=== PATIENT | female | born 1955 | race Caucasian/White ===

== ENCOUNTER → 2017-01-20 | Day surgery (SDC) | payer OTHER ==
[~2017-01-20] MED LIST: ACET325 PO; B/P MED PO; B12-1CHW CHEW; BUPIVACAINE HCL PF 0.25% 30 ML VIAL ONE; CEPH250 PO; GNP400TA4 PO; IBUP-232 PO; KETO2%T TOP; KETOROLAC TROMETHAMINE 30 MG/ML (IVP) VIAL IV PUSH ONE; LACTATED RINGER'S 1000 ML INJ 1,000 ML ONE; LEVO.1 PO; MIDAZOLAM HCL 2 MG/2 ML VIAL ONE; OLIV250C PO; ONDANSETRON HCL 4 MG/2 ML VIAL IV PUSH ONE; PROPOFOL 100 MG/10 ML INJ IV ONE; TAB-TAB PO; ceFAZolin 2 GM PREMIX 50 ML ONE
--- NOTE | 2017-01-22 10:57 | MP ---
cc: CHANTEL STALEY DP DATE OF SURGERY 01/20/2017 PREOPERATIVE DIAGNOSIS Painful hardware, painful exostosis, right hallux. POSTOPERATIVE DIAGNOSIS Painful hardware, painful exostosis, right hallux. PROCEDURES PERFORMED Removal of painful hardware, exostectomy of plantar hallux IPJ. SPECIMEN None. ESTIMATED BLOOD LOSS Less than 30 mL. COMPLICATIONS None. ANESTHESIA General with 15 cc of 0.25% Marcaine plain. PLAN OF ACTIVITY Discharge home once stable per same-day surgery criteria. TOURNIQUET TIME 60 minutes at a setting of 215 mmHg PROCEDURE IN DETAIL Under mild sedation, the patient is brought into the operating room, placed on the operating room table in the supine position. Following the induction of general anesthesia, local anesthesia was attained about the forefoot utilizing standard block fashion. The patient's right foot was then scrubbed, prepped and draped in the usual aseptic fashion. The foot was elevated, exsanguinated and the previously placed mid-ankle tourniquet was inflated to 215 mmHg. Incision was made at the medial distal hallux. Sharp and blunt dissection was carried down to a headless screw that was used previous for an IPJ fusion. This was removed without any complication. Next the dorsal incision was made. Sharp and blunt dissection was carried down beneath the periosteal layer and a dorsal first MPJ fusion plate was removed. However, there was noted to be fracturing of the third screw from distal. At this time a truss line was then used to truss line over the dorsal aspect of the screw. The screw was then grasped with a straight hemostat and was exited from the bone without any complication. The wound was flushed with copious amounts of normal saline. The periosteal layer was placed using Monocryl. The skin was closed utilizing nylon. Next, incision was made over the plantar lateral hallux. Sharp and blunt dissection was carried down to proliferate bone. This was then removed to a flat, more accommodating weightbearing contour as opposed to its pointy, painful nature. The wound was flushed with copious amounts of normal saline. The skin was closed utilizing nylon. Upon relieving the tourniquet there was a prompt hyperemic response to all digits without any delayed capillary fill time. A bulky bandage was placed and the patient transferred over to PACU with all vital signs stable. The patient is to heel weight-bear. Followup within 3-5 days. DALTON Li/YAEL /1:39 PM /10:43 AM
== END | disposition home or self-care (01) ==
LOC: ESDC 09:56
PROVIDERS: ATTEND Podiatrist Foot & Ankle Surgery
DX: T84.84XA Pain due to internal orthopedic prosthetic devices, implants and grafts, initial encounter (principal); M25.774 Osteophyte, right foot
CPT/HCPCS: 01480; 20680; 28288; 73620; 76000; J0690; J1885; J2250; J2405; J3010; J7120

== ENCOUNTER → 2017-10-20 | Day surgery (SDC) | payer OTHER ==
[~2017-10-20] MED LIST changes: -BUPIVACAINE HCL PF 0.25% 30 ML VIAL ONE; +BUPIVACAINE HCL PF 0.75% 30 ML VIAL ONE; -KETOROLAC TROMETHAMINE 30 MG/ML (IVP) VIAL IV PUSH ONE; -LACTATED RINGER'S 1000 ML INJ 1,000 ML ONE; +LIDOCAINE 1.5%/EPINEPHrine 1:200,000 PF SOLN 30 ML AMP ONE; -MIDAZOLAM HCL 2 MG/2 ML VIAL ONE; +MIDAZOLAM HCL 5 MG/ML VIAL (1 ML) ONE; -ONDANSETRON HCL 4 MG/2 ML VIAL IV PUSH ONE; -PROPOFOL 100 MG/10 ML INJ IV ONE; +PROPOFOL 500 MG/50 ML BTL IV ONE
--- NOTE | 2017-10-20 20:23 | MP ---
cc: CHANTEL STALEY DPM DATE OF SURGERY 10/20/17 PREOPERATIVE DIAGNOSIS Chronic metatarsalgia, hammertoes two through five. POSTOPERATIVE DIAGNOSIS Chronic metatarsalgia, hammertoes two through five. PROCEDURE PERFORMED Second through five metatarsal head resection plantar first MPJ exostectomy and PIPJ fusion digits 2, 3, 4, and 5. IMPLANTABLES Times three 0.045 wires and x1 0.054 wire. ANESTHESIA The patient had an anesthesia block popliteal ESTIMATED BLOOD LOSS Less than 40 mL TOURNIQUET TIME 105 minutes at a setting of 215 mmHg about the patient's right ankle. JUSTIFICATION FOR PROCEDURE A pleasant 62-year-old female with chronic right foot pain. She has had isolated metatarsal head resections and a first MPJ fusion. The patient continues to have chronic pain. We devised a plan to move forward with metatarsal head resection, plantar resurfacing of the first metatarsal and possible resection of the proximal phalanx base with repair of hammertoes. No guarantees were given or implied regarding the outcome. The patient understands chronic stiffness, numbness, burning, tingling, edema, possible need for more surgery at a later date, infection is all possible. PROCEDURE IN DETAIL Under mild sedation, the patient is brought into the operating room, placed on the operating table in the supine position. Following the induction of general anesthesia, the patient's right lower extremity was then scrubbed, prepped and draped in the usual aseptic fashion. The foot was elevated, exsanguinated and previously placed mid ankle tourniquet was inflated at 215 mmHg. The procedure that was performed on digits 2, 3, 4, and 5 are exactly the same. An incision was made over the respective digit at the level of the PIPJ. Sharp and blunt dissection was carried down to the bow strung extensor digitorum longus tendon. A Z tendon lengthening approach took place allowing for access through scar tissue down to a prominent bony exostosis and hypertrophy of the respective metatarsal head area. The metatarsal head was then resected through a subperiosteal dissection being careful not to violate plantar, medial or lateral neurovascular bundles. Next, sharp and blunt dissection was carried down to the level of the head of the proximal phalanx and the base of the middle phalanx with the respective digit. The head of the proximal phalanx was transected as well as the base of the middle phalanx. The wound was flushed with copious amounts of normal saline. A wire was then placed through the middle phalanx. The distal phalanx retrograded back across the proximal phalanx stopping just short at the previous area of where the metatarsal head remained. This took place on digits 2, 3, 4 and 5. Extensor digitorum longus tendon was then loosely coapted utilizing Vicryl under loose physiologic tension. Subdermal closure took place utilizing Vicryl. Skin was closed utilizing nylon. Next, an isolated medial plantar first MPJ incision was made. Incision was made through joint capsule down to bone. A subperiosteal dissection took place and the plantar condyle of the first metatarsal and the base of the proximal phalanx was then transected to a more smooth contour. The wound was flushed with copious amounts of normal saline. The capsule was then repaired utilizing Vicryl. Skin was closed utilizing nylon. Fluoroscopy was used to visualize the work that was done. There were wires in place digits 2, 3, 4 and 5 with excellent alignment and a soft contour upon palpating the plantar forefoot at the area with there is previous excessive bony exostosis and pain. A bulky bandage was placed. The patient was then positioned within a controlled ankle motion boot. The patient was then transferred from OR to PACU with all vital signs stable. Before leaving operative suite and applying the bandages, the tourniquet was dropped. There was a prompt hyperemic response to all digits without any delayed capillary fill time. The patient is non-weightbearing. She will ice, elevate. I will see the patient within 3-5 days. DALTON Li /3:10 PM /8:11 PM
== END | disposition home or self-care (01) ==
LOC: ESDC 10:45
PROVIDERS: ATTEND Podiatrist Foot & Ankle Surgery
DX: M20.41 Other hammer toe(s) (acquired), right foot (principal); M79.671 Pain in right foot
CPT/HCPCS: 28234; 28285; 28288; 64445; 73620; 76000; J0690; J2250; J3010

== ENCOUNTER 2018-04-11 08:12 | Emergency (ER) | payer OTHER ==
[~2018-04-11] VITALS: Ht 170.2 cm; Wt 92.0 kg
[~2018-04-11 08:12] MED LIST changes: -BUPIVACAINE HCL PF 0.75% 30 ML VIAL ONE; -LIDOCAINE 1.5%/EPINEPHrine 1:200,000 PF SOLN 30 ML AMP ONE; -MIDAZOLAM HCL 5 MG/ML VIAL (1 ML) ONE; -PROPOFOL 500 MG/50 ML BTL IV ONE; -ceFAZolin 2 GM PREMIX 50 ML ONE
[2018-04-11 08:18] VITALS: BP 194/93; PULSE 74; RESP 16; TEMP 97.8; O2SAT 100
--- NOTE | 2018-04-11 08:35 | PD ---
HPI Chief Complaint: Fall Time Seen by Provider: 08:23 Travel History International Travel<30 days: No Contact w/Intl Traveler<30days: No Traveled to known affect area: No History of Present Illness HPI 63yo F with PMH of arthritis presents to the ED with c/o right knee pain s/p trip and fall today about an hour ago. Said her shoes were damp and tripped on her neighbor's hardwood floor falling forward and hitting her right knee and right forehead. Said her right forehead does not really hurt and has no LOC. Denies any visual changes, nausea, vomiting, chest pain, sob, abdominal pain, focal weakness or numbness. Pt able to ambulate after the fall but with pain. Took acetaminophen prior to fall for her arthritis and does not want anything for pain right now. Knee pain is constant, moderate in severity and worst with movement. Denies any anticoagulation. PFSH Past Medical History Diminished Hearing: No Immunizations Current: Yes Thyroid Disease: Yes (HYPOTHYROID) Menopausal: Yes Past Surgical History Appendectomy: Yes Cholecystectomy: Yes Hysterectomy: Yes Other Surgery: Yes (FINGER AMPUTATED) Social History Alcohol Use: No Tobacco Use: No Substance Use: No Allergies-Medications (Allergen,Severity, Reaction): Coded Allergies: Sulfa (Sulfonamide Antibiotics) (Unverified Allergy, Severe, THROAT CLOSES , 04/11/18) ciprofloxacin (Unverified Allergy, Severe, THROAT CLOSES, 04/11/18) clindamycin (Unverified Allergy, Severe, THROAT CLOSES, 04/11/18) codeine (Unverified Allergy, Severe, CONVULSIONS, 04/11/18) diatrizoate meglumine (Unverified Allergy, Severe, THROAT CLOSES, 04/11/18) erythromycin base (Unverified Allergy, Severe, THROAT CLOSES, 04/11/18) gadobenic acid (Unverified Allergy, Severe, THROAT CLOSES, 04/11/18) gadodiamide (Unverified Allergy, Severe, THROAT CLOSES, 04/11/18) gadoteridol (Unverified Allergy, Severe, THROAT CLOSES, 04/11/18) iodixanol (Unverified Allergy, Severe, THROAT CLOSES, 04/11/18) iohexol (Unverified Allergy, Severe, THROAT CLOSES, 04/11/18) penicillin G (Unverified Allergy, Severe, THROAT CLOSES, 04/11/18) prochlorperazine (Unverified Allergy, Severe, CONVULSIONS, 04/11/18) shellfish derived (Unverified Allergy, Severe, THROAT CLOSES, 04/11/18) doxycycline (Unverified Allergy, Mild, THROAT CLOSES, 04/11/18) hydromorphone (Unverified Allergy, Mild, 04/11/18) minocycline (Unverified Allergy, Mild, THROAT CLOSES, 04/11/18) tigecycline (Unverified Allergy, Mild, THROAT CLOSES, 04/11/18) Reported Meds & Prescriptions Reported Meds & Active Scripts Active Reported [Bp Medication] 1 Tab PO DAILY Multi-Vitamin Daily (Multiple Vitamin) 1 Tab Tab 1 Tab PO DAILY Tylenol (Acetaminophen) 325 Mg Tab 325 Mg PO Q4H PRN Levothyroxine (Levothyroxine Sodium) 100 Mcg Tab 100 Mcg PO DAILY Review of Systems Except as stated in HPI: all other systems reviewed are Neg Physical Exam Narrative GENERAL: 63yo F not in distress. SKIN: Focused skin assessment warm/dry. HEAD: +Mild erythema in right forehead. No bleeding. EYES: Pupils equal and round at 3mm bilaterally. EOMI. ENT: No hemotympanum bilaterally. No septal hematoma. NECK: No midline cervical spine ttp. CARDIOVASCULAR: Regular rate and rhythm. No murmur appreciated. RESPIRATORY: No accessory muscle use. Clear to auscultation. Breath sounds equal bilaterally. GASTROINTESTINAL: Abdomen soft, non-tender, nondistended. MUSCULOSKELETAL: RLE: +TTP diffusely in right knee. No erythema. Distal pulses intact. Sensation intact. Able to flex and extend fully but with pain. No ttp bilateral hips. NEUROLOGICAL: Awake and alert. No obvious cranial nerve deficits. Motor grossly within normal limits in all extremities. Sensation intact and equal. Normal speech. PSYCHIATRIC: Appropriate mood and affect; insight and judgment normal. Data Data Last Documented VS Vital Signs Date Time Temp Pulse Resp B/P (MAP) Pulse Ox O2 Delivery O2 Flow Rate FiO2 04/11/18 08:31 Room Air 04/11/18 08:18 97.8 74 16 194/93 (126) 100 Orders Orders Knee, Ltd (1 Or 2vws) (04/11/18 ) [facility] Medical Decision Making Medical Screen Exam Complete: Yes Emergency Medical Condition: Yes Differential Diagnosis Fracture vs. contusion Narrative Course 63yo F here with right knee pain s/p mechanical fall today. Pt did hit her right forehead but pain is minimal and has no focal neurologic deficits. No CT imaging needed for head as per CT lib[place] head rule. Xray right knee showed no acute injury. Pt still does not want anything for pain. Return precautions given. Diagnosis Primary Impression: Fall Qualified Codes: W19.XXXA - Unspecified fall, initial encounter Patient Instructions: General Instructions Departure Forms: Tests/Procedures Additional Instructions: Please follow up with your primary care physician in 2-3 days. Take acetaminophen for pain as needed. Return to the ED if symptoms worsen. Med/Other Pt SpecificInfo: No Change to Meds Disposition: 01 DISCHARGE HOME Condition: Stable Rubia Dillard DO Apr 11, 2018 08:35
[2018-04-11] MEDS ORDERED: BP MEDICATION PO (08:37)
[2018-04-11] MEDS ORDERED: MULT-65 PO (08:37)
[2018-04-11] MEDS ORDERED: LEVO100T5 PO (08:37)
[2018-04-11] MEDS ORDERED: TYLE325T PO (08:37)
--- NOTE | 2018-04-11 09:04 | RADRPT ---
EXAM DATE: 04/11/2018 9:01 AM EDT AGE/SEX: 63 years / Female INDICATIONS: Fell on right knee, has pain anterior aspect of knee CLINICAL DATA: This is the patient's initial encounter. Patient reports that signs and symptoms have been present for 1 day and indicates a pain score of 9/10. MEDICAL/SURGICAL HISTORY: None. . left knee, right foot COMPARISON: No prior [facility] exams available for comparison. FINDINGS: Bony structures are intact and in normal alignment. Mild lateral joint line narrowing and bony produc tive changes. Patellar enthesophyte at the insertion of the quadriceps tendon.. Osseous density is n ormal. Soft tissues are unremarkable. No radiopaque foreign bodies seen. CONCLUSION: No evidence of acute injury. Electronically signed by: Lexie Brown MD 04/11/2018 9:02 AM EDT
== END 2018-04-11 10:25 | disposition home or self-care (01) ==
LOC: PHED 08:12
DX: M25.561 Pain in right knee (principal); R51 Headache; E03.9 Hypothyroidism, unspecified; W01.0XXA Fall on same level from slipping, tripping and stumbling without subsequent striking against object, initial encounter; Z79.899 Other long term (current) drug therapy; Z88.2 Allergy status to sulfonamides; Z88.5 Allergy status to narcotic agent; Z88.0 Allergy status to penicillin; Z88.8 Allergy status to other drugs, medicaments and biological substances
CPT/HCPCS: 73560; 99283

== ENCOUNTER 2018-05-01 18:02 | Emergency (ER) | payer OTHER ==
[~2018-05-01] VITALS: Ht 170.2 cm; Wt 91.0 kg
[~2018-05-01 18:02] MED LIST changes: -ACET325 PO; -B/P MED PO; -B12-1CHW CHEW; +BP MEDICATION PO; -CEPH250 PO; -GNP400TA4 PO; -IBUP-232 PO; -KETO2%T TOP; -LEVO.1 PO; +LEVO100T5 PO; +MULT-65 PO; -OLIV250C PO; -TAB-TAB PO; +TYLE325T PO
[2018-05-01 18:04] VITALS: BP 165/79; PULSE 68; RESP 18; TEMP 98.1; O2SAT 100
[2018-05-01] MEDS ORDERED: ENAL5TAB PO (18:40)
--- NOTE | 2018-05-01 18:43 | PD ---
HPI Chief Complaint: Skin Problem Time Seen by Provider: 18:23 Travel History International Travel<30 days: No Contact w/Intl Traveler<30days: No Traveled to known affect area: No History of Present Illness HPI This patient complains of possible infection of the right great toe. She has had multiple surgeries on that right foot due to some sort of bone deformity. She follows with a absorption plant operator regularly. She noticed some blistering near the tip recently. Symptom severity is mild. No alleviating factors no injury to it no fever or drainage PFSH Past Medical History Arthritis: Yes Diminished Hearing: No Hypertension: Yes Immunizations Current: Yes Thyroid Disease: Yes (HYPOTHYROID) Tetanus Vaccination: < 5 Years Influenza Vaccination: No ?: Not Menopausal: Yes Past Surgical History Appendectomy: Yes Cholecystectomy: Yes Hysterectomy: Yes Joint Replacement: Yes (left knee) Tonsillectomy: Yes Other Surgery: Yes ( right hand 4th digit FINGER AMPUTATED) Social History Alcohol Use: No Tobacco Use: No Substance Use: No Allergies-Medications (Allergen,Severity, Reaction): Coded Allergies: Sulfa (Sulfonamide Antibiotics) (Unverified Allergy, Severe, THROAT CLOSES , 05/01/18) ciprofloxacin (Unverified Allergy, Severe, THROAT CLOSES, 05/01/18) clindamycin (Unverified Allergy, Severe, THROAT CLOSES, 05/01/18) codeine (Unverified Allergy, Severe, CONVULSIONS, 05/01/18) diatrizoate meglumine (Unverified Allergy, Severe, THROAT CLOSES, 05/01/18) erythromycin base (Unverified Allergy, Severe, THROAT CLOSES, 05/01/18) gadobenic acid (Unverified Allergy, Severe, THROAT CLOSES, 05/01/18) gadodiamide (Unverified Allergy, Severe, THROAT CLOSES, 05/01/18) gadoteridol (Unverified Allergy, Severe, THROAT CLOSES, 05/01/18) iodixanol (Unverified Allergy, Severe, THROAT CLOSES, 05/01/18) iohexol (Unverified Allergy, Severe, THROAT CLOSES, 05/01/18) penicillin G (Unverified Allergy, Severe, THROAT CLOSES, 05/01/18) prochlorperazine (Unverified Allergy, Severe, CONVULSIONS, 05/01/18) shellfish derived (Unverified Allergy, Severe, THROAT CLOSES, 05/01/18) doxycycline (Unverified Allergy, Mild, THROAT CLOSES, 05/01/18) hydromorphone (Unverified Allergy, Mild, 05/01/18) minocycline (Unverified Allergy, Mild, THROAT CLOSES, 05/01/18) tigecycline (Unverified Allergy, Mild, THROAT CLOSES, 05/01/18) Reported Meds & Prescriptions Reported Meds & Active Scripts Active Reported Enalapril (Enalapril Maleate) 5 Mg Tab 5 Mg PO BID Multi-Vitamin Daily (Multiple Vitamin) 1 Tab Tab 1 Tab PO DAILY Tylenol (Acetaminophen) 325 Mg Tab 325 Mg PO Q4H PRN Levothyroxine (Levothyroxine Sodium) 100 Mcg Tab 100 Mcg PO DAILY Review of Systems General / Constitutional: No: Fever Eyes: No: Diploplia Cardiovascular: No: Chest Pain or Discomfort Respiratory: No: Cough Physical Exam Narrative Psych: Normal mood and affect. Normal insight and judgment. SKIN: Focused skin assessment reveals no rash or ulcers. Skin is warm and dry. Palpation shows no induration or nodules. Right foot: There are some chronic deformity from surgical changes. Examination of the great toe reveals that there is a healing blistered area. There is a bit of rough skin and it is dry but there is no evidence of infection. There is no redness or warmth or drainage or fluctuance. Data Data Last Documented VS Vital Signs Date Time Temp Pulse Resp B/P (MAP) Pulse Ox O2 Delivery O2 Flow Rate FiO2 05/01/18 18:31 16 05/01/18 18:04 98.1 68 165/79 (107) 100 MDM Medical Decision Making Medical Screen Exam Complete: Yes Emergency Medical Condition: Yes Medical Record Reviewed: Yes Differential Diagnosis Blister, cellulitis, scab Narrative Course I have reviewed the patient's electronic medical record. I do not see any evidence of infectious process going on in the right great toe. She should keep an eye on it and return if there is development of those symptoms which we reviewed. Follow-up with podiatry as needed Diagnosis Primary Impression: Blister of great toe, right Qualified Codes: S90.421A - Blister (nonthermal), right great toe, initial encounter Additional Instructions: Follow-up with podiatry as needed Med/Other Pt SpecificInfo: Other Disposition: 01 DISCHARGE HOME Condition: Stable Hao Zamorano MD May 01, 2018 18:43
== END 2018-05-01 19:00 | disposition home or self-care (01) ==
LOC: PHED 18:02
DX: S90.421A Blister (nonthermal), right great toe, initial encounter (principal); I10 Essential (primary) hypertension; E03.9 Hypothyroidism, unspecified; X58.XXXA Exposure to other specified factors, initial encounter; Z88.5 Allergy status to narcotic agent; Z88.2 Allergy status to sulfonamides; Z88.1 Allergy status to other antibiotic agents; Z88.0 Allergy status to penicillin
CPT/HCPCS: 99282

== ENCOUNTER 2018-06-17 06:42 | Inpatient (IN) ==
--- NOTE | 2018-06-16 15:25 | MH ---
cc: Cliff Beasley MD DATE OF ADMISSION: 06/17/2018 ADMITTING DIAGNOSIS: Failed left total knee arthroplasty, now being admitted for revision total knee arthroplasty. HISTORY OF PRESENT ILLNESS: This pleasant 63-year-old female is being admitted today for revision left total knee arthroplasty due to a failed left total knee arthroplasty. She has been having pain ____ in this knee for several months now. She fell in April and had an injury 2 years ago. She has had the left total knee done in 2011, which was a [employer]. PAST MEDICAL HISTORY: The patient has a history of hypertension and hypothyroidism. CURRENT MEDICATIONS: Include Amlodipine and levothyroxine. PAST SURGICAL HISTORY: Other than the left total knee, includes hysterectomy. REVIEW OF SYSTEMS: Noncontributory. FAMILY HISTORY: Noncontributory. SOCIAL HISTORY: She does not smoke and does not drink. ALLERGIES: MACROLIDE ANTIBIOTICS AND CLINDAMYCIN. PHYSICAL EXAMINATION: GENERAL: We find a 63-year-old female, well-developed, well-nourished, oriented x 3, complaining of pain in the left knee. VITAL SIGNS: Blood pressure 120/70, pulse 75 and regular, respirations 16, temperature 98.3, pulse oximetry 98% on room air. HEENT: Eyes: PERRLA, EOMI. Ears, nose and mouth clear. NECK: Supple. LUNGS: Clear. HEART: Regular rate. ABDOMEN: Soft, positive bowel sounds, nontender. EXTREMITIES: Reveal the left knee to have crepitance on range of motion. Neurovascularly intact to her toes. 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 PLAN: Admission for revision left total knee arthroplasty today. The patient was given prescription for postoperative pain and anticoagulation control in the office, and plans on going home after surgical stay in the hospital with home health care. MD DELORIS Dominguez/BEBE , 03:08 PM , 03:15 PM
[2018-06-17] MEDS ORDERED: Chlorhexidine Gluconate 2% 1 Pack (2 Cloths) TOPICAL SCH (07:15)
[2018-06-17] MEDS ORDERED: Metoprolol Tartrate 25 MG Tablet PO SCH (07:15)
[2018-06-17] MEDS ORDERED: Chlorhexidine 4% Topical 120 APPLIC/120 ML Bottle TOPICAL SCH (07:30)
[2018-06-17] MEDS ORDERED: Vancomycin Inj 1 GM/200 ML PIGGYBACK IV.SIG SCH (08:00)
[2018-06-17] MEDS ORDERED: [UNRECOGNIZED DRUG - OTHER] I-ARTICULR SCH ×2 (08:00)
[2018-06-17] MEDS ORDERED: Tranexamic Acid Inj 900 MG in Sodium Chlor 0.9% Inj 100 ML IV.SIG SCH (08:00)
[2018-06-17] MEDS ORDERED: SODIUM CHLOR I-ARTICULR SCH ×2 (08:00)
[2018-06-17] MEDS ORDERED: BUPIVACAINE LIPOSO I-ARTICULR SCH ×2 (08:00)
[2018-06-17] MEDS ORDERED: Sodium Chlor 0.9% Inj 500 ML IV.SIG SCH (08:00)
[2018-06-17] MEDS ORDERED: Tobramycin Sulfate 1,200 MG Vial (for ortho/sterile core) OTHER ONE ×2 (08:06)
[2018-06-17] MEDS ORDERED: Bupivacaine Liposomal PF 1.3% Inj 20 ML Vial ONE (08:07)
[2018-06-17] MEDS ORDERED: ceFAZolin 2 GM Premix Inj 0 GM/0 ML PIGGYBACK IV.SIG ONE (08:16)
[2018-06-17] MEDS ORDERED: Tranexamic Acid Inj 1,000 MG in Sodium Chlor 0.9% Inj 100 ML IV.SIG ONE (08:21)
[2018-06-17] MEDS ORDERED: Post-op Orders (for Pharmacy) OTHER STA (08:21)
[2018-06-17] MEDS ORDERED: Bisacodyl 10 MG Supp RECTAL PRN (08:21)
[2018-06-17] MEDS ORDERED: Morphine Inj 4 MG/ML Vial IV.PUSH PRN (08:21)
--- NOTE | 2018-06-17 08:29 | P.DCO ---
- Physical Therapy Knee: Total knee, Protocol: Left, Gait training, Full weight bearing Canvas Knee Splint: Remove only with PT - Nursing Dressing changes: Do not change dressing - Certification Need for Home Health services: I have seen patient Deepti Love on 06/17/18. My clinical findings support the need for the requested home health care services because: Need for Home Health Services: High risk of falls Homebound Certification: I certify that my clinical findings support that this patient is homebound because: Homebound Certification: Post-op weakness, Unsteady gait/balance
[2018-06-17] MEDS ORDERED: GARLIC EXTRACT PO SCH (09:00)
[2018-06-17] MEDS ORDERED: OLIVE LEAF EXTRACT PO SCH (09:00)
[2018-06-17] MEDS ORDERED: Bupivacaine Liposomal PF 1.3% Inj 20 ML Vial I-ARTICULR ONE (09:30)
[2018-06-17] MEDS ORDERED: Lidocaine PF 1% Inj 5 ML Syringe INFILTRATN ONE (12:00)
[2018-06-17] MEDS ORDERED: fentaNYL Citrate Inj 100 MCG/2 ML Ampul ONE ×2 (12:34→14:36)
--- NOTE | 2018-06-17 14:26 | XR ---
EXAM DATE: 06/17/2018 2:19 PM EDT AGE/SEX: 63 years / Female INDICATIONS: Check placement of tibial component in or. CLINICAL DATA: This is the patient's initial encounter. Patient reports that signs and symptoms have been present for 1 day and indicates a pain score of Nonresponsive. MEDICAL/SURGICAL HISTORY: None. Total knee replacement, left. COMPARISON: [facility], KNEE RIGHT LTD (1 OR 2 VWS), 04/11/2018. . FINDINGS: Views of the left knee are obtained. Left knee arthroplasty. There are rods associated with the prost heses. These appear unremarkable. Postsurgical changes. No hardware loosening or fracture. CONCLUSION: Left knee arthroplasty. No hardware loosening or fracture. Electronically signed by: Jessee Duffy MD 06/17/2018 2:25 PM EDT
--- NOTE | 2018-06-17 14:40 | P.BOP ---
- Preoperative Diagnosis (1) Failed total left knee replacement - Postoperative Diagnosis (1) Failed total left knee replacement (2) Status post revision of total replacement of left knee Date of procedure: 06/17/18 Procedure: Left Revision of Total Knee Arthroplasty Implants: see implant record Anesthesia: CARMELOA Surgeon: Radha Beasley MD Hat Ironer: Fabiola Lucas Estimated blood loss (mL): 500 Tourniquet time (min): 119 (300 mmHg) Urine output (mL): 0 (no [place]) Pathology: other (Culture Left knee fluid) Condition: stable Disposition: PACU
--- NOTE | 2018-06-17 14:41 | MP ---
cc: Cliff Beasley MD DATE OF OPERATION: 06/17/2018 DATE OF SURGERY: 06/17/2018 PREOPERATIVE DIAGNOSIS: Failed painful left total knee arthroplasty. POSTOPERATIVE DIAGNOSIS: Failed painful left total knee arthroplasty. PROCEDURE PERFORMED: Revision of left total knee arthroplasty from a standard total knee to a Savoy revision total knee. SURGEON: Cliff Beasley MD FACILITY WORKER: MARCEL Phan ANESTHESIA: General intubation and block. PROCEDURE: The patient was brought to the operating room where, after successful induction of general anesthesia, the patient's left knee, thigh and leg were prepped and draped in the usual manner. Tourniquet inflated at the left upper thigh and set to 300 mmHg pressure for exsanguination of the left lower extremity. Incision was then made through the old incision, 12 inches in length, centering over the patella, carried down through the subcutaneous tissue, through the deep fascia to expose the knee joint. Fluid from the knee joint was found to be clear, sent to the lab for STAT Gram's stain, culture and sensitivity. Gram's stain revealed a few white cells, no bacteria seen. The soft tissue was then removed from around the total knee and found to be stained with the black from the Oxinium that was used in the previous knee. After soft tissue debrided, the knee flexed, the patella found to be intact and left alone after debridement of soft tissue from the area. With flexion, flexible osteotomes were used to disimpact the distal femur from the bone from the cement and it was removed. Next, the same was done with the tibia. This was much harder as the tibia had noted to be subsided and in poor alignment. Once the tibia was removed, the tibial canal was prepared first by first removing the cement and reaming to a size 14. The tibial surface was then recut using the external guides and, using the different guides, the tibial trials were put together and impacted into place allowing for wedges. It needed both a 5 mm and a 10 mm wedge, 5 mm on the lateral side and 10 on the medial side to compensate for bone loss. A 14 x 92 mm tibial stem was utilized with size 3 tibial tray and this had to be done several times for proper fixation and stabilization. The femur was then prepared by finding the intercondylar notch and reaming to a size 15 x 177 stem. A size 4 left femur was then also found to be the best size and, using the guides, anterior and posterior cuts were made, followed by the chamfers and insertion of the trials. After all trials were inserted, the size 14 insert was found to track best. By this point, the tourniquet had reached 2 hours and was deflated and meticulous hemostasis achieved. After trials were removed, the wound was irrigated copiously with antibiotic solution and multiple trials performed. 1 hour after the tourniquet was deflated, it was reinflated for cementing and left up for 30 more minutes and then deflated. Antibiotic impregnated cement was utilized using tobramycin. The actual components were inserted and impacted into place. Excess cement removed. Full range of motion of the knee joint was appreciated then with no instability. A lateral retinacular release had to be performed to help in removal of the tibial component and insertion. This was repaired using interrupted #1 Vicryl suture. 60 mL of a mixture of Exparel and normal saline and 0.25% Marcaine plain was used around the deep knee joint for extra pain control. Deep fascia approximated with running #2 Quill, subcutaneous tissue approximated using interrupted and running 2-0 and 4-0 Monocryl suture and Prineo dressing and knee immobilizer. X-rays taken in surgery and did reveal the prosthesis to be seated in excellent alignment. A lot of soft tissue releasing needed to be done for proper fixation and range of motion of the knee. The total time spent on this patient was 8:20 a.m. to 14:15. ESTIMATED BLOOD LOSS: 550 mL. COUNTS: Sponge and suture counts were correct. The patient tolerated the procedure well and left the operating room in satisfactory condition. MARCEL Phan, was present during the entire procedure to include patient positioning and the procedure. The medical necessity of the nurse practitioner first calender worker was indicated in this case due to the surgical complexity of the case itself. During the surgical case, the boiler control technician was working the back table while my executive personal assistant MARCEL was directly assisting me. JMD DELORIS Parra/ZOE , 02:08 PM , 02:21 PM
[2018-06-17] MEDS ORDERED: *morphine SULFATE 4 MG/ML PERIprocedure ONLY ONE (15:17)
--- NOTE | 2018-06-17 15:21 | XR ---
EXAM DATE: 06/17/2018 3:17 PM EDT AGE/SEX: 63 years / Female INDICATIONS: Post-op left total knee. CLINICAL DATA: This is the patient's initial encounter. Patient reports that signs and symptoms have been present for 1 day and indicates a pain score of Nonresponsive. MEDICAL/SURGICAL HISTORY: None. . Left total knee. COMPARISON: [facility] [place] 11/10V, 06/17/2018. . FINDINGS: Patient is status post left total knee arthroplasty that appears intact and normally aligned. No unex pected radiopaque objects are seen. No evidence of an acute complication. CONCLUSION: Expected postop radiographic appearance of left total knee arthroplasty. Electronically signed by: Frederic Solitario MD 06/17/2018 3:20 PM EDT
[2018-06-17] MEDS: Multivitamin/Minerals Therapeutic Tablet PO SCH (17:45)
[2018-06-17] MEDS: Senna/Docusate Sodium 8.6/50 MG Tablet PO SCH ×2 (17:45→21:08)
[2018-06-17] MEDS: Acetaminophen 325 MG Tablet PO PRN ×2 (18:11→23:55)
[2018-06-18 04:33] LABS: Hematocrit 31.6 % (35.0-46.0); Hemoglobin 10.9 gm/dL (11.6-15.3)
[2018-06-18] MEDS: Levothyroxine 100 MCG Tablet PO SCH (05:24)
[2018-06-18] MEDS: Acetaminophen 325 MG Tablet PO PRN (05:24)
--- NOTE | 2018-06-18 08:52 | P.PNOP ---
Subjective Interval history: Pt having pain today. Tylenol not strong enough. Physical Exam Vital signs: Vital Signs 06/17/18 14:30 06/17/18 14:45 06/17/18 15:00 Temperature 98.3 F Pulse Rate 76 78 72 Respiratory Rate 16 16 16 Blood Pressure 123/63 130/68 129/72 Pulse Oximetry 100 98 98 06/17/18 15:15 06/17/18 15:30 06/17/18 15:45 Temperature Pulse Rate 72 78 74 Respiratory Rate 16 16 16 Blood Pressure 128/75 128/62 126/66 Pulse Oximetry 99 99 97 06/17/18 16:00 06/17/18 16:15 06/17/18 20:00 Temperature 97.4 F L 97.7 F Pulse Rate 78 78 70 Respiratory Rate 14 16 18 Blood Pressure 127/62 130/64 157/67 H Pulse Oximetry 97 97 99 06/18/18 00:00 06/18/18 04:00 Temperature 97.6 F 97.7 F Pulse Rate 76 78 Respiratory Rate 18 18 Blood Pressure 118/59 L 113/58 L Pulse Oximetry 97 95 Intake & Output 06/17/18 06/18/18 06/18/18 18:59 06:59 18:59 Intake Total 2060 / 2060 1619 / 1619 Output Total 1250 / 1250 Balance 810 / 810 1619 / 1619 Weight 90.5 kg Intake: IV 1110 / 1110 1099 / 1099 LR 1000 mL Inj 1,000 ML @ 80 1000 / 1000 899 / 899 mls/hr IV.CONT .[id number] [facility] Rx# :[id number] Cyklokapron Inj 1,000 MG In NS 110 / 110 Inj 100 ML @ 200 mls/hr IV.SIG ONCE ONE Rx#:[id number] Ancef Inj 1,000 MG In NS Inj 200 / 200 100 ML @ 200 mls/hr IV.SIG Q6H [facility] Rx#:[id number] Oral 520 / 520 Anesthesia Amount 950 / 950 Output: Urine 700 / 700 Estimated Blood Loss 550 / 550 Other: # Voids 1 7 Date of Last Bowel Movement 06/16/18 06/16/18 Weight On Admission 90.5 kg - Constitutional mild distress Results - Labs CBC & Chem 7: 06/18/18 03:42 Laboratory Results - last 24 hr 06/18/18 03:42 Hgb 10.9 L Hct 31.6 L Microbiology 06/17/18 09:46 Other Fungal Smear - Final No fungal elements seen 06/17/18 09:46 Wound - Knee Gram Stain - Final - Imaging Impressions Knee X-Ray 06/17/18 00:00 CONCLUSION: Left knee arthroplasty. No hardware loosening or fracture. Knee X-Ray 06/17/18 08:21 CONCLUSION: Expected postop radiographic appearance of left total knee arthroplasty. Assessment and Plan - Attending Attestation Attending Attestation: Try Ultram for pain control. Cont PT, CPM, OOB. Possible dc to home tomorrow with HHC and PT.
[2018-06-18] MEDS: Senna/Docusate Sodium 8.6/50 MG Tablet PO SCH ×2 (09:51→21:26)
[2018-06-18] MEDS: Multivitamin/Minerals Therapeutic Tablet PO SCH (09:51)
[2018-06-19] MEDS: Levothyroxine 100 MCG Tablet PO SCH (05:08)
[2018-06-19 06:21] LABS: Hematocrit 30.4 % (35.0-46.0); Hemoglobin 10.3 gm/dL (11.6-15.3)
[2018-06-19] MEDS: Senna/Docusate Sodium 8.6/50 MG Tablet PO SCH ×2 (08:18→22:41)
[2018-06-19] MEDS: Multivitamin/Minerals Therapeutic Tablet PO SCH (08:18)
--- NOTE | 2018-06-19 10:42 | P.PNOP ---
Subjective Interval history: Pt painful today. Feels ultram helps some. Physical Exam Vital signs: Vital Signs 06/18/18 17:58 06/18/18 20:00 06/19/18 00:00 Temperature 98.2 F 99.7 F H 98 F Pulse Rate 78 78 84 Respiratory Rate 18 18 Blood Pressure 140/60 115/58 L 107/54 L Pulse Oximetry 95 96 95 06/19/18 08:00 Temperature 98.5 F Pulse Rate 76 Respiratory Rate 18 Blood Pressure 130/61 Pulse Oximetry 94 L Intake & Output 06/18/18 06/19/18 06/19/18 18:59 06:59 18:59 Intake Total 800 / 800 540 / 540 Balance 800 / 800 540 / 540 Intake: Oral 800 / 800 540 / 540 Other: # Voids 5 Date of Last Bowel Movement 06/16/18 06/16/18 06/16/18 - Constitutional mild distress Results - Labs CBC & Chem 7: 06/19/18 05:11 Laboratory Results - last 24 hr 06/19/18 05:11 Hgb 10.3 L Hct 30.4 L Microbiology 06/17/18 09:46 Wound - Knee Gram Stain - Final 06/17/18 09:46 Wound - Knee Wound Culture - Preliminary No growth in 48 hours 06/17/18 09:46 Other Acid Fast Bacilli Smear - Final No acid fast bacilli seen Assessment and Plan - Attending Attestation Attending Attestation: Dressing dry and intact. NV intact to toes. Cont PT, home in AM with HHC and PT.
--- NOTE | 2018-06-19 10:51 | P.DS ---
Date of admission: 06/17/18 06:42 Primary care physician: Fabrice Velásquez MD, PhD Brief History from admission: Patient underwent a revision left total knee arthroplasty on day of admission. She received a course of prophylactic IV antibiotics and within 23 hours started anticoagulation therapy. She continued to improve tolerate food and fluid well and was discharged on third postoperative day to home with home health care and continuation of care in good condition with p.o. pain meds. DS: Medications - Discharge Medications Prescriptions: tramadol [Ultram] 50 mg PO Q4H PRN 7 Days #42 tab PRN Reason: Pain Scale 6 To 10 DS: Summary Hospital Course: Pt underwent total knee surgery on day of admission. She received a course of prophylactic IV antibiotics and within 23 hours started on anticoagulant therapy. She continued to improve tolerating PO pain meds, food and fluid well and PT. She was discharged to home with HHC and PT on POD #3 in good condition with instructions for continuation of care. - Time Spent with Patient Total time spent providing and/or coordinating discharge services: Less than 30 minutes - Quality: VTE Deep Vein Thrombosis/Pulmonary Embolism Present on Admission: No Exam Vital signs: Vital Signs 06/18/18 17:58 06/18/18 20:00 06/19/18 00:00 Temperature 98.2 F 99.7 F H 98 F Pulse Rate 78 78 84 Respiratory Rate 18 18 Blood Pressure 140/60 115/58 L 107/54 L Pulse Oximetry 95 96 95 06/19/18 08:00 Temperature 98.5 F Pulse Rate 76 Respiratory Rate 18 Blood Pressure 130/61 Pulse Oximetry 94 L Intake & Output 06/18/18 06/19/18 06/19/18 18:59 06:59 18:59 Intake Total 800 / 800 540 / 540 Balance 800 / 800 540 / 540 Intake: Oral 800 / 800 540 / 540 Other: # Voids 5 Date of Last Bowel Movement 06/16/18 06/16/18 06/16/18 Results Procedures completed during hospitalization: Total knee Labs on day of discharge: Labs from last 24 hours 06/19/18 05:11 Hgb 10.3 L Hct 30.4 L Preliminary micro results at discharge 06/17/18 09:46 Wound Culture - Preliminary Wound - Knee No growth in 48 hours - Impressions ITS Impressions Knee X-Ray 06/17/18 08:21 CONCLUSION: Expected postop radiographic appearance of left total knee arthroplasty. Discharge Plan - Discharge Disposition Patient Disposition: W/Home Health Service - Discharge Condition Condition: Good - Discharge Order Discharge Orders: Discharge Order (Routine); Ordered 06/20/18 Ordered By: Radha Kenny - Physicians Team Primary Care Provider: Fabrice Velásquez Attending Provider: Radha Kenny Other Providers: [facility] - Rxs /Orders / Referrals /Forms Prescriptions: New tramadol [Ultram] 50 mg Tablet 50 mg PO Q4H PRN (Reason: Pain Scale 6 To 10) 7 Days Qty: 42 RF: 0 Continue acetaminophen [Tylenol Arthritis Pain] 650 mg Tablet Extended Release 650 mg PO BID cholecalciferol (vitamin D3) [Vitamin D3] 2,000 unit Tablet 2,000 unit PO DAILY enalapril maleate 5 mg Tablet 5 mg PO BID garlic extract 600 mg Tablet 600 mg PO DAILY levothyroxine 100 mcg Capsule 100 mcg PO DAILY [id number] K [Adults Multivitamin] 18 mg iron-400 mcg-25 mcg Tablet 1 tab PO DAILY olive leaf extract 250 mg Capsule 1 cap PO BID Ambulatory Orders / Order Sets / DME: Adjustable Commode 3-in-1 (1 each) (Routine) Location: Determined by Patient Ordered By: Radha Kenny CPM - Continuous Passive Motion Machine (1 each) (Routine) Location: Determined by Patient Ordered By: Radha Kenny Walker With Front Wheels (1 each) (Routine) Location: Determined by Patient Ordered By: Radha Kenny Referrals: [facility] Only [Outside] - See Instructions (Call if you have not yet received your CPM and/or Commode) Fabrice Velásquez MD, PhD [Primary Care Provider] - See Instructions - Discharge Instructions Additional Instructions: RX'S SENT WITH PATIENT AT TIME OF DISCHARGE. KEEP YOUR SCHEDULED FOLLOW UP APPOINTMENT WITH DR. KENNY DISCUSSED. IF YOU HAVE ANY QUESTIONS OR NEED TO RESCHEDULE, PLEASE CALL THE ORTHOPEDIC OFFICE. FOLLOW UP WITH YOUR PRIMARY CARE PROVIDER IN 3-4 DAYS. NO DRIVING WHILE TAKING NARCOTIC PAIN MEDICINE. IT WAS A PLEASURE TAKING CARE OF YOU TODAY. - Post Discharge Care Plan Care Plan Goals: Discharge Care Plan Goals for Total Knee Replacement You have undergone knee replacement surgery. Your doctor replaced your painful joint with an artificial joint to relieve pain and restore movement. Here are some goals to help you heal well. Directions to Meet your Goals: 1. Activity & Exercises: * Take pain medicine as directed by your doctor. * Sit in chairs with arms. The arms make it easier for you to stand up or sit down. * Dont sit for more than 30 to 45 minutes at one time. * Nap if you are tired, but dont stay in bed all day. * Sleep with a pillow under your ankle, not your knee. Be sure to change the position of your leg during the night. * Wear the support stockings you were given in the hospital as directed by your surgeon. 2. Prevent Falls/Injury: The coburn to successful recovery is movement with walking and exercising your knee as directed by your doctor. * Arrange your household to keep the items you need handy. Keep everything else out of the way. * Remove items that may cause you to fall, such as throw rugs and electrical cords. * Use nonslip bath mats, grab bars, an elevated toilet seat, and a shower chair in your bathroom * Sit on a shower stool or chair when you shower to keep from falling. * Until your balance, flexibility, and strength improve, use a cane, crutches, a walker, handrails, or someone to help you. * Keep your hands free by using a backpack, paul pack, apron, or pockets to carry things * Walk up and down stairs with support. Try one step at a time. Use the railing if possible. * Dont drive until your doctor says its OK. * Dont drive while you are taking opioid pain medicine. 3. Precautions: * Prevent infection. Any infection will need to be treated immediately. Call your doctor right away if you think you might have an infection. * Tell your dentist that you have an artificial joint and take antibiotics as prescribed before any dental work. * Tell all your healthcare providers about your artificial joint before any medical procedure. * Maintain a healthy weight. Get help to lose any extra pounds. Added body weight puts stress on the knee. * Your medications may include blood-thinning medicine to prevent blood clots or antibiotics to prevent infection-prevent any falls or cuts 4. Incision Care: * Prevent infection by washing your hands often. If an infection occurs, it will need to be treated right away. * Call your doctor right away if you think you may have an infection. Symptoms include a fever or an incision that leaks white, green, or yellow fluid. * Don't soak your incision in water until your doctor says its OK. This means no hot tubs, bathtubs, or swimming pools. * Follow your doctor's instructions for changing the dressing. * Dont rub the incision, or apply creams or lotions to it. * If you notice any redness or drainage around the bandage site, contact your surgeon's office immediately. 5. Follow-Up: Do Not miss your follow-up appointment. Keep up with all your appointments and yearly check ups When to call your doctor: Call your doctor right away if you have: Fever of 100.4F (38C) or higher, or as directed by your doctor Shaking chills Stiffness, or inability to move the knee Increased swelling in your leg Increased redness, tenderness, or swelling in or around the knee incision Drainage from the knee incision Increased knee pain Call 911: Call 911 right away if you have: Chest pain Shortness of breath Any pain or tenderness in your calf
[2018-06-20] MEDS: Levothyroxine 100 MCG Tablet PO SCH (05:04)
[2018-06-20] MEDS: Senna/Docusate Sodium 8.6/50 MG Tablet PO SCH (08:56)
[2018-06-20] MEDS: Multivitamin/Minerals Therapeutic Tablet PO SCH (08:56)
== END 2018-06-20 11:55 | disposition home health service (06) ==
LOC: HSDI 06:42 → EDSTATUS 08:30 → N06 16:24
PROVIDERS: ADMIT Surgery; ATTEND Surgery